=== PATIENT | female | born 1950 | race Caucasian/White ===

== ENCOUNTER 2017-02-23 12:06 | Emergency (ER) | payer OTHER, MEDICARE ==
[2017-02-23 12:12] VITALS: BP 103/74; PULSE 114; RESP 18; TEMP 98.8; O2SAT 96
[2017-02-23] MEDS ORDERED: PROPARACAINE 0.5% 15 ML OPHT DROP RTEYE ONE (12:17)
--- NOTE | 2017-02-23 12:43 | EDPHY ---
H & P HPI/ROS: 67-year-old woman presents complaining of right eye pain and redness. Patient states she has a history of blepharitis for which she does regular daily eyelid soaks in warm compresses and uses lubricating drops. She is here visiting her son from out of state she thinks a dry air is exacerbating it. She did not wear contact lenses. Her vision is not changed. She woke up this morning with severe pain in her right eye. She denies her eyelids being stuck shut or drainage. She says her left eye not have the same symptoms. She says she has used proparacaine in the past at home along with erythromycin ointment. Smoking Status: Never smoked Physical Exam: Visual Acuity: noted from Nurse's notes. Pupils: equal round and reactive to light EOMI Lids: Right wound with mild redness, no swelling Skin: no proptosis, no periorbital erythema or swelling, no vesicles Conjunctivae: Right mildly injected, left clear, no discharge Cornea: exam with fluorescein shows linear corneal abrasion below the pupil on the right cornea, left clear Anterior chamber: normal, no hyphema or hypopyon bilaterally Constitutional: Initial Vital Signs Temperature (C) 37.1 C 02/23/17 12:09 Heart Rate 114 H 02/23/17 12:09 Respiratory Rate 18 02/23/17 12:09 Blood Pressure 103/74 02/23/17 12:09 O2 Sat (%) 96 02/23/17 12:09 O2 Delivery Mode Room Air Allergies/Adverse Reactions: codeine Allergy (Verified 02/23/17 12:15) Penicillins Allergy (Verified 02/23/17 12:14) Home Medications: Medication Instructions Recorded Ciprofloxacin HCl [Ciprofloxacin 0.5 each RTEYE Q12 #0 droperette 02/23/17 Opth Drops] Diclofenac 0.1% [Voltaren 0.1% (*)] 1 drops RIGHTEYE QID #1 opht.btl 02/23/17 Lipitor 02/23/17 Xanax 02/23/17 MDM/Departure - MDM Medications Given: Discontinued Medications Proparacaine HCl (Alcaine 0.5%) 1 drops RTEYE ONCE ONE Stop: 02/23/17 12:18 Last Admin: 02/23/17 12:25 Dose: 1 drop ED Course/Re-evaluation: 67-year-old woman who does not wear contact lenses with history of blepharitis presents with right eye pain and redness. Exam reveals corneal abrasion on the right. Patient will be treated with topical NSAIDs and antibiotics and she will follow up with her eye doctor in [place] when she returns tomorrow. - Depart Disposition: Home, Routine, Self-Care Clinical Impression: Corneal abrasion, right Qualifiers: Encounter type: initial encounter Qualified Code(s): S05.01XA - Injury of conjunctiva and corneal abrasion without foreign body, right eye, initial encounter Condition: Good Instructions: Corneal Abrasion (ED) Additional Instructions: You were seen by Dr. Alanna Askew today. Return for any worsening or new concerns. Use diclofenac drops for pain and antibiotic drops. Please have your eye recheck by your eye doctor as soon as possible. Prescriptions: Ciprofloxacin HCl [Ciprofloxacin Opth Drops] 0.5 each RTEYE Q12 #0 droperette Diclofenac 0.1% [Voltaren 0.1% (*)] 1 drops RIGHTEYE QID #1 opht.btl Referrals: STEVE ESCOBAR [Other] - As per Instructions
== END 2017-02-23 12:53 | disposition home or self-care (01) ==
LOC: CED 12:06
DX: S05.01XA Injury of conjunctiva and corneal abrasion without foreign body, right eye, initial encounter (principal); X58.XXXA Exposure to other specified factors, initial encounter